=== PATIENT | female | born 1950 | race Caucasian/White ===

== ENCOUNTER 2025-11-21 23:35 | Inpatient (IN) | payer OTHER, SELFPAY ==
[2025-11-21 20:01] VITALS: BP 168/86
--- NOTE | 2025-11-21 21:13 | ED.GENMED ---
History of Present Illness
General
Chief Complaint: Breathing Problem
Time Seen by Provider: 11/21/25 20:50
History of Present Illness
History of Present Illness:
Patient is a 75-year-old woman history of hypertension, hyperlipidemia, diabetes presenting to the emergency department did not exertion. Patient states for the past few weeks has been having shortness of breath especially upon exertion, chest
pressure and a cough. Some mild leg swelling. Family visited her today who noticed significant decline and they convinced her to come to the emergency department for further evaluation. Patient has never seen cardiology before. No fevers chills.
No hemoptysis. No history of blood clots. She does state that she sleeps on 2 pillows.
Phy Exam
Physical Exam
Physical Exam:
GENERAL: in no acute distress
HEENT: normocephalic, extraocular movements intact, moist oral mucosa
NECK: normal inspection
RESPIRATORY: no respiratory distress, fine crackles at bases
CARDIOVASCULAR: regular rate and rhythm
ABDOMEN/: soft, non-distended, non-tender to palpation, no rebound or guarding
EXTREMITIES: non-tender, mild bilateral lower extremity edema
NEUROLOGIC: awake and alert, moves all extremities
SKIN: warm
Scores
Heart Failure Risk
Heart Failure Risk Score: Not Applicable
Course
Orders/Labs/Results
Orders:
Orders
11/21/25 20:00
EKG [Electrocardiogram (*1)] Urgent
Reason for Study: Shortness of Breath
EKG- Treatment ONCE
11/21/25 20:07
Electrocardiogram (*1) Urgent
Reason for Study: Shortness of Breath
EKG- Treatment ONCE
CR Chest - 2 Views Urgent
Comment:
Reason For Exam: sob/guzman x 3-4 weeks w/ dry cough
11/21/25 21:47
Complete Blood Count/With Diff Urgent
Comprehensive Metabolic Panel Urgent
NT-proBNP Urgent
Prothrombin Time Urgent
Troponin I Urgent
11/21/25 22:40
* Blood Bank Products Urgent
Blood Bank Products: *Packed RBC Leuko (PRBC's
Quantity: 1
Transfuse Today: Yes
Reason: Anemia
Abnormal Lab Results
11/21/25
21:47
RBC 2.98 L 10^6/uL
(4.20-5.40)
Hgb 7.4 L g/dL
(12.0-16.0)
Hct 23.9 L %
(37.0-47.0)
MCV 80.2 L fL
(81.0-99.0)
MCH 24.8 L pg
(27.0-31.0)
MCHC 31.0 L g/dL
(33.0-37.0)
RDW 18.1 H %
(11.5-14.5)
Absolute Lymphs (auto) 1.1 L 10^3/uL
(1.2-3.4)
Lymphocytes % 19.4 L %
(20.5-51.1)
Sodium 131 L mmol/L
(135-145)
Carbon Dioxide 21 L mmol/L
(22-30)
BUN 31 H mg/dl
(7-17)
Creatinine 1.6 H mg/dL
(0.6-1.0)
Glucose 160 H mg/dl
(70-99)
11/21/25 21:47
11/21/25 21:47
Vital Signs
Initial and Last Documented VS:
Initial Vital Signs
Temp Pulse Resp BP Pulse Ox
98.5 F 92 24 168/86 98
11/21/25 20:01 11/21/25 20:01 11/21/25 20:01 11/21/25 20:01 11/21/25 20:01
Last Documented Vital Signs
Temp Pulse Resp BP Pulse Ox
98.5 F 92 24 168/86 98
11/21/25 20:01 11/21/25 20:01 11/21/25 20:01 11/21/25 20:01 11/21/25 21:15
MDM/Problems Addressed
Differential Diagnosis Includes:
Patient is a 75-year-old woman with history of hypertension, hyperlipidemia, diabetes presenting to the emergency department with a few weeks of dyspnea on exertion as well as chest pressure. On arrival vitals unremarkable. Exam does show fine
crackles at the bases as well as bilateral lower extremity edema. She is mildly short of breath even with conversation. Concern for new onset heart failure versus atypical ACS versus viral illness though unlikely given duration of symptoms. Will
check blood work including troponin and BNP. Will obtain EKG and chest x-ray. Will get ambulatory pulse ox .
*Pulse Oximetry
SaO2: 98
Oxygen Mode of Delivery: Room air
Patient hypoxic: no
*Critical Care Note
Total Time (30-74mins, 75-104mins- exclusive of procedures): Not Applicable
Update Note
Update Note:
Blood work notable for hemoglobin of 7.4. Patient does state that she has had a low hemoglobin before but never this low. No history of melena. She also has elevated creatinine at 1.6. Unclear what baseline is. Troponin and BNP is normal.
Chest x-ray per my interpretation with no focal opacity. Upon minimal ambulation patient with significant shortness of breath with normal pulse ox. Could be symptomatic anemia. Will transfuse a unit of blood. Consent obtained.. Discussed with
hospitalist who accepted patient to their service.
ED Attending Note
-
Portions of this chart may have been created with voice recognition software.� Occasional wrong word or��sound alike� substitutions may have occurred due to the inherent limitations of voice recognition software.
Discharge Plan
Departure
Patient Disposition: Admit
Date of Disposition: 11/21/25
Time of Disposition: 22:41
Presentation/result/management discussed w/ accepting MD/DO: Hospitalist
Discharge Problem:
GUZMAN (dyspnea on exertion)
Referrals:
Adelso Jackson MD [Family Provider]
Interventions
Interventions:
*General Assessment Last Done: 11/21/25 20:01
*Neglect/Abuse Screening Last Done: 11/21/25 20:01
Discharge Date and Time
Print Language: TUNISIAN
[2025-11-21 21:58] LABS: Hematocrit 23.9 % (37.0-47.0); Hemoglobin 7.4 g/dL (12.0-16.0); Mean Corp Hgb Conc. 31.0 g/dL (33.0-37.0); Mean Corpuscular Volume 80.2 fL (81.0-99.0); Nucleated Red Blood Cells % 0 %; Platelet Count 363 10^3/uL (130-400); Red Cell Dist. Width 18.1 % (11.5-14.5)
[2025-11-21 22:00] VITALS: BP 157/79
[2025-11-21 22:11] LABS: INR 1.01; PT 13.1 Sec (11.4-14.6)
[2025-11-21 22:23] LABS: ALT (SGPT) 15 U/L (0-35); AST (SGOT) 27 U/L (14-36); Albumin 4.2 g/dl (3.5-5.0); Alkaline Phosphatase 69 U/L (38-126); Blood Urea Nitrogen 31 mg/dl (7-17); Calcium 9.6 mg/dl (8.4-10.2); Carbon Dioxide 21 mmol/L (22-30); Chloride 101 mmol/L (98-107); Glucose 160 mg/dl (70-99); Potassium 4.1 mmol/L (3.5-5.1); Sodium 131 mmol/L (135-145); Total Protein 6.7 g/dl (6.3-8.2); eGFR 33.01
[2025-11-21 22:24] LABS: Troponin I < 0.012 ng/ml
[2025-11-21 22:25] VITALS: BP 157/85
--- NOTE | 2025-11-21 22:47 | HPS.HSE ---
Addendum entered and electronically signed by Nathanael Cesar DO 11/21/25 23:57:
Patient seen and examined independently. Agree with findings and plan as set forth by BALBINA Irby.
Patient is a 75y F with PMH significant for hypertension, DM-II and CKD who presents to ED complaining of dyspnea on exertion. Patient states that she has become progressively more short of breath with activity since . She notes
some increase in her chronic LE swelling. She has chronic LE / calf cramping. No chest pain, fevers / chills, etc. She reports mild cough productive of clear sputum. No noted bleeding including bloody nose, coughing blood, bloody stools, black
stools, etc.
Ass:
GUZMAN
Suspected CHF
Anemia - Unknown Type / Acuity
CKD - Unknown Stage
Hyponatremia
Benign Hypertension
DM-II
GERD
Hypothyroidism
Gout
Plan:
Admit for further evaluation and treatment.
Gradually progressive dyspnea, lower extremity edema, hyponatremia and elevated BP seems most c/w volume overload / CHF.
IV Lasix BID and follow for improvement.
Check Echo. Cardiology evaluation if warranted.
Transfusion ordered in the ED for Hgb = 7.4. ? baseline.
Obtain prior labs from [facility] for comparative baseline(s) for Hgb, SCr, etc.
Check iron studies. Heme test stools.
Original Note:
Family Physician
-
Family Physician: Adelso Jackson
Chief Complaint
-
sob
History of Present Illness
75-year-old woman history of hypertension, hyperlipidemia, diabetes , lung nodules, CKD, anemia presented to us with progressively worsening sob since . patient stated sob worse with exertion, relieves with rest. denied chest pain. she
complained of cough with clear sputum. denied ZAMORA, dizzy or syncope. denied abdominal pain, rectal bleed, black stool, n,v. denied dysuria or hematuria.she also complained of worsening of her LE edema.
upon arrial noted hgb of 7.4, giving one unit of blood. admitting for further management.
Medical History
Past Medical History
Past Medical History: Reports Other
Additional Past Medical History:
Hypertension hyperlipidemia CKD type 2 diabetes, GERD, leg nodules, hypothyroidism
Past Surgical History: Reports Other
Additional Past Surgical History:
Cataract surgery
Social History
Tobacco: Former Smoker
Alcohol: Occasional
Drug: None
Personal: Single
Living: Alone
Family History
Family History: Not pertinent
Allergies / Home Medications
Allergies reflects when Allergies were last updated in [facility].
Home Medications with original date entered in [facility]
Allergy/Medication List:
Allergies
Allergy/AdvReac Type Severity Reaction Status Date / Time
No Known Allergies Allergy Unverified 11/21/25 20:00
Review of Systems
-
Constitutional: Reports No Symptoms
EENT: Reports No Symptoms
Respiratory: Reports Trouble Breathing
Cardiac: Reports No Symptoms
Abdomen/GI: Reports No Symptoms
: Reports No Symptoms
Musculoskeletal: Reports No Symptoms and Edema (b/l LE edema)
Skin: Reports No Symptoms
Neurological: Reports No Symptoms
Endocrine: Reports No Symptoms
Hematologic/Lymphatic: Reports No Symptoms
Psych: Reports No Symptoms
Physical Exam
Vital Signs
Vital Signs
Temp Pulse Resp BP Pulse Ox
98.5 F 92 24 168/86 98
11/21/25 20:01 11/21/25 20:01 11/21/25 20:01 11/21/25 20:01 11/21/25 21:15
Physical Exam
General: Well Developed, Well Nourished and No Apparent Distress
HEENT: NormoCephalic, Moist mucous membranes and Atraumatic
Respiratory: Decreased Breath Sounds
Cardiac: S1/S2 and Regular Rhythm; No Murmur or Rub
GI: Soft, Non Tender, Non Distended and Normal Bowel Sounds; No Organomegaly
Rectal: Deferred by Provider
Musculoskeletal: No Clubbing, No Cyanosis and Other (b/l Le edema)
Skin: No Rash
Neuro: AO x 3 and Nonfocal/grossly intact
Psych: Calm
Laboratory Results
-
11/21/25 21:47
11/21/25 21:47
Laboratory Results
PT 13.1 Sec (11.4-14.6) 11/21/25 21:47
INR 1.01 11/21/25 21:47
Total Bilirubin 0.4 mg/dl (0.2-1.3) 11/21/25 21:47
AST 27 U/L (14-36) 11/21/25 21:47
ALT 15 U/L (0-35) 11/21/25 21:47
Alkaline Phosphatase 69 U/L (38-126) 11/21/25 21:47
Troponin I < 0.012 ng/ml 11/21/25 21:47
Data Reviewed
-
Lab Data: Labs Reviewed by me
Impression/Plan
-
#sob concern for CHF
-BNP 505, chest x ray pending
-diuretics continued
-obtain ECHO
-strict I&O, daily weight
-fluid restriction
#hxt of anemia unclear of baseline
-obtain iron panel, ferritin, b12, folate, TIBC
-hgb 7.4, no active bleeding
-transfusing with one unit of blood
-hgb in am
#hyponatremia concern for fluid overload
#hxt of CKD unclear baseline
-na 131, cr 1.6
-ctm
-fluid restriction
#essential HTN
-hold lisinopril,chlorthalidone
-atenolol continued
#HLD
-statin continued
#GERd
-PPI continued
#hypothyroidism
-levothyroxine continued
#type 2 Dm
-sliding scale
-hold glipizide
-CHO diet
#GOUT
-allopurinol continued
#DVT Prophylaxis
-scd
#CODE status
-full code
[2025-11-21 23:00] VITALS: BP 150/91
[2025-11-21 23:50] LABS: Iron 34 ug/dl (37-170)
[2025-11-22] VITALS (9 sets, daily range): BP systolic 106–170; BP diastolic 61–89; BMI 27.0
[2025-11-22] LABS: Total Iron Binding Capacity 563 ug/dl (265-497)
--- NOTE | 2025-11-22 | PTCARENOTE ---
Pt is awake,alert, and oriented. no c/o pain. pt a little GUZMAN. spo2=98%. lugs diminished but CTA. pt denies any hx of chf. education provided and explained test to evaluate for chf. pt ordered 1 unit of blood. pt oriented to room w/ call patel in
reach.
[2025-11-22] MEDS: LASIX 40 MG IV ×2 (00:12→10:00)
[2025-11-22 00:26] LABS: Ferritin 7.7 ng/ml (11.1-264.0)
[2025-11-22 00:57] LABS: Folate 8.5 ng/ml (2.76-20); Vitamin B12 468 pg/ml (239-931)
[2025-11-22] MEDS: SYNTHROID 25 MCG PO (05:56)
--- NOTE | 2025-11-22 06:07 | PTCARENOTE ---
blood transfusion completed. vss. no reaction noted
[2025-11-22 07:48] LABS: Glucose - Point of Care 138 mg/dl (70-99)
[2025-11-22] MEDS: NOVOLOG FLEXPEN-LOW RESISTANCE SC (08:01)
[2025-11-22] MEDS: ZYLOPRIM 300 MG PO (08:17)
[2025-11-22] MEDS: PROTONIX 40 MG PO (08:18)
[2025-11-22] MEDS: TRICOR 145 MG PO (08:18)
[2025-11-22 09:33] LABS: Blood Urea Nitrogen 30 mg/dl (7-17); Calcium 10.2 mg/dl (8.4-10.2); Carbon Dioxide 25 mmol/L (22-30); Chloride 97 mmol/L (98-107); Estimated Creatinine Clearance 23 ml/min; Glucose 129 mg/dl (70-99); HDL Cholesterol 40 mg/dl; LDL Cholesterol, Calculated 57 mg/dl; Magnesium 1.9 mg/dl (1.6-2.3); Potassium 3.7 mmol/L (3.5-5.1); Sodium 134 mmol/L (135-145); Very Low Density Lipoprotein 37 mg/dl (0-30); eGFR 30.70
[2025-11-22 09:37] LABS: Glycohemoglobin (HgbA1c) 7.4 % (4.0-5.9)
[2025-11-22 09:43] LABS: Hematocrit 30.0 % (37.0-47.0); Hemoglobin 9.6 g/dL (12.0-16.0); Mean Corp Hgb Conc. 32.0 g/dL (33.0-37.0); Mean Corpuscular Volume 81.5 fL (81.0-99.0); Platelet Count 377 10^3/uL (130-400); Red Cell Dist. Width 16.8 % (11.5-14.5)
[2025-11-22] MEDS: TENORMIN 100 MG PO (09:59)
[2025-11-22 12:26] LABS: Glucose - Point of Care 243 mg/dl (70-99)
[2025-11-22] MEDS: NOVOLOG FLEXPEN-LOW RESISTANCE 2 UNITS SC (12:53)
--- NOTE | 2025-11-22 14:31 | W.PN.HOSP.TC ---
Today's Communication/Plan
-
Start on IV Venofer. Check heme to stools.
Follow echocardiogram report. Consult cardiology.
Assessment / Plan
Assessment / Plan
# Exertional shortness of breath with lower extremity edema
Initial concern was CHF with hypertension, diabetes mellitus and chronic kidney disease.
Clinically currently without JVD. Chest sounds clear. No lower extremity edema evident. BNP was within the normal limits. Chest x-ray without evidence of CHF or pulmonary edema.
Echo pending. I suspect this may be more anemia driven.
Continue with Lasix. Consult cardiology.
# Severe anemia with hemoglobin 7.4.
#Hx of anemia unclear of baseline
#Iron deficiency
-hgb 7.4, no active bleeding
- S/p transfusion of 1 unit of blood with improvement in hemoglobin.
- Start on IV iron.
- Check heme test stools.
If no active bleeding patient would be referred for colonoscopy as an outpatient in view of iron deficiency anemia.
#hyponatremia
? related to Chlorthalidone which is on hold
Improved .
Currently on lasix
#hx of CKD unclear baseline
- cr 1.6
-ctm
-fluid restriction
#essential HTN
-hold lisinopril,chlorthalidone
-atenolol continued
- BP undergoal
- Check UA
#HLD
-statin continued
#GERd
-PPI continued
#hypothyroidism
-levothyroxine continued
#type 2 Dm
-sliding scale
-hold glipizide
-CHO diet
#GOUT
-allopurinol continued
#DVT Prophylaxis
-scd
#CODE status
-full code
DW family at bedside
Total time spent on today's encounter was 52 minutes which included time spent in counseling the patient/family regarding diagnosis and treatment plan as listed above, goals of care, and symptom management. Case was discussed with nursing staff,
specialists, and care coordinators/case management. All labs and imaging personally reviewed by me. Remainder the time spent in detailed review of previous records, lab data, imaging, and other medical provider documentation.
Portions of this chart may have been created with voice recognition software. Occasional wrong word or 'sound alike' substitutions may have occurred due to the inherent limitations of voice recognition software.
Anticipated Discharge: 24 - 48 hours
Subjective/Interval History
-
Date of Service: November 22, 2025
Patient today without shortness of breath or chest pain at rest. Improved lower extremity edema after Lasix.
Known hypertension and diabetes mellitus type 2. She apparently was also told she has kidney injury and has seen senior human resources representative in the past but now currently follows just PCP.
Apparently had a history of anemia but never had bleeding in the stools or dark stools. She had some hemorrhoidal bleeding in the past. No peptic ulcer disease. Has some heartburn and takes medicines for that. Last colonoscopy was 17-18 years
ago. No weight changes. Denies change in the bowel habits.
No palpitations.
Objective Data
-
Labs:
Laboratory Results
11/22/25
08:28
WBC 5.1
Hgb 9.6 L D
Hct 30.0 L
Plt Count 377
Sodium 134 L
Potassium 3.7
Chloride 97 L
Carbon Dioxide 25
BUN 30 H
Creatinine 1.7 H
Glucose 129 H
Calcium 10.2
Vital Signs:
Vital Signs
Temp Pulse Resp BP Pulse Ox
97.8 F 72 18 139/73 98
11/22/25 11:45 11/22/25 11:45 11/22/25 11:45 11/22/25 11:45 11/22/25 11:45
I&O
11/21/25 11/22/25 11/23/25
06:59 06:59 06:59
Intake Total 490 / 490
Output Total 1100 / 1100
Balance -610 / -610
Physical Exam
-
General: Comfortable
Respiratory: Clear to Auscultation and Non Labored Respirations; Negative Accessory Resp Muscle Use
Cardiac: Regular Rhythm, S1/S2 and Murmur; Negative Tachycardic
GI: Soft, Nontender, Nondistended and Normal Bowel Sounds
Musculoskeletal: No Edema
Neuro: AO x 3
Psych: Calm
Data Reviewed
-
Labs: Labs Reviewed by me
--- NOTE | 2025-11-22 15:03 | CON.CAR ---
Addendum entered and electronically signed by Jordon Wing MD 11/22/25 16:39:
I reviewed and agree with the note by BALBINA Oconnor and it accurately reflects our care.
I saw and evaluated the patient, and I provided the substantive portion of the medical decision making. My assessment and plan is below:
75-year-old female with hypertension, hyperlipidemia, diabetes, CKD, and anemia who presents with shortness of breath since . She reports that her family saw her yesterday for the holiday and advised her to come to the hospital due to
her profound shortness of breath. It was happening both at rest and with exertion. She also had some mild lower extremity edema. No orthopnea, weight gain, or paroxysmal nocturnal dyspnea. On admission she was found to have hemoglobin 7.4 and
was transfused 1 unit PRBCs. She was also given 1 dose of IV Lasix. She feels improved compared to admission.
Physical exam: RRR, systolic murmur, clear lungs, no lower extremity edema
TTE 11/22/2025: LVEF 55-60%, normal diastolic function, moderate
CXR with no pulmonary edema. NT proBNP 503.
Shortness of breath: Suspect this was mostly due to her anemia. Cannot rule out a small component of CHF given her concomitant lower extremity edema but CXR, NT proBNP, and normal diastolic function would argue against this. I do not think she
needs any more IV diuresis. She is on chlorthalidone as an outpatient, so we can switch this to Lasix 40 mg daily. Would not start SGLT2 inhibitor or MRA given dubious heart failure diagnosis.
Moderate aortic stenosis: She will need outpatient follow-up and serial echocardiograms.
Cardiology will sign off at this time. Please call with any additional questions or concerns.
Original Note:
Consultation
Consultation Request
Date/Time Consultation Requested: 11/22/25 1437
Date/Time Consultation Performed: 11/22/25 1500
Requesting Provider: Dr. Farris
Performing Provider: Michelle MORTENSEN for Dr. Wing
Reason for Consultation: CHF
Medical History
-
Chief Complaint: SOB
History of Present Illness:
75 y/o female with HTN, DM, HLD, CKD, and anemia who is here for evaluation of progressive GUZMAN since . Her family saw her yesterday and told her she needs to come to ER- son at bedside. She has some chronic BLE edema, which she thinks
also worsened during that timeframe. No orthopnea. No significant change in weight. No blood in urine or stool. Denies chest pain. She is admitted for suspected CHF and anemia. She received PRBCs and lasix and is feeling improved. She is in no
distress at the time of my assessment.
Past Medical History
Past Medical History: HTN, Hypercholesterolemia, NIDDM and Other (as above)
Social History
Tobacco: Former Smoker
Family History
Family History: Reviewed & Not Pertinent
Allergies / Home Medications
Allergy/AdvReac Type Severity Reaction Status Date / Time
No Known Allergies Allergy Unverified 11/21/25 20:00
�Medication �Instructions �Recorded �Confirmed �Type
albuterol sulfate 90 mcg/actuation 1 puff inhalation Q4H PRN 11/21/25 11/21/25 History
aerosol inhaler sob/wheezing
allopurinol 300 mg tablet 300 mg PO DAILY 11/21/25 11/21/25 History
atenolol 100 mg-chlorthalidone 25 1 tab PO DAILY 11/21/25 11/21/25 History
mg tablet
fenofibrate 160 mg tablet 160 mg PO DAILY 11/21/25 11/21/25 History
fluticasone propionate 50 1 spray intranasal BID 11/21/25 11/21/25 History
mcg/actuation nasal
spray,suspension
glipizide 5 mg tablet, extended 5 mg PO TID 11/21/25 11/21/25 History
release 24 hr
levothyroxine 25 mcg tablet 25 mcg PO DAILY 11/21/25 11/21/25 History
lisinopril 20 mg tablet 20 mg PO DAILY 11/21/25 11/21/25 History
pantoprazole 40 mg tablet,delayed 40 mg PO DAILY 11/21/25 11/21/25 History
release
rosuvastatin 40 mg tablet 40 mg PO DAILY 11/21/25 11/21/25 History
aspirin 81 mg tablet 81 mg PO DAILY 11/22/25 11/22/25 History
Review of Systems
-
History Source: Patient
All other systems: Negative unless noted
Respiratory: Trouble Breathing
Musculoskeletal: Edema
Physical Exam
Vital Signs
Temp Pulse Resp BP Pulse Ox
97.8 F 72 18 139/73 98
11/22/25 11:45 11/22/25 11:45 11/22/25 11:45 11/22/25 11:45 11/22/25 11:45
Lab Results
11/22/25 08:28
11/22/25 08:28
Troponin I < 0.012 ng/ml 11/21/25 21:47
Chu-S-Mihkgnoqyhm Pept 503 pg/ml 11/21/25 21:47
Physical Exam
General: Well Developed, Well Nourished and No Apparent Distress
HEENT: Normocephalic and Anicteric
Respiratory: Clear and Non Labored Respirations
Cardiac: Regular Rhythm
Musculoskeletal: Edema (mild BLE edema)
Skin: Warm and Dry
Neuro: AO x 3
Psych: Calm
Impression / Plan
-
GUZMAN:
-improved with treatment of anemia and CHF
Acute HFpEF:
-had SOB and LE edema
-s/p IV diuresis (which requires intensive monitoring)- can likely transition to PO soon (replace chlorthalidone with Lasix 20 mg PO daily)- will need BMP about 1 week after d/c.
-Echo 11/22/25: Normal left ventricular systolic function. Estimated ejection fraction 55 to 60%. Moderate aortic stenosis with mean gradient 14 mmHg and dimensionless index 0.3. Trace aortic regurgitation.
Moderate :
-volume plan as above
-monitor as OP over time by echo
CKD:
-unknown baseline
-monitor with Lasix
Anemia, severe:
-improved s/p PRBC
-management per primary
HTN:
-monitor with medication adjustments
DM2:
-on oral medical therapy
Data Reviewed
-
EKG: Tracing Personally Visualized and interpreted (NSR)
Radiology: Report Reviewed by me (CXR: No acute cardiopulmonary process.)
Medical Tests (Nuc Med, Echo etc): Report Reviewed by me (echo as noted)
Labs: Labs Reviewed by me
[2025-11-22 16:37] LABS: Glucose - Point of Care 161 mg/dl (70-99)
[2025-11-22] MEDS: CRESTOR 40 MG PO (17:15)
[2025-11-22] MEDS: NOVOLOG FLEXPEN-LOW RESISTANCE 1 UNITS SC (17:16)
[2025-11-22 21:10] LABS: Glucose - Point of Care 164 mg/dl (70-99)
[2025-11-23 03:18] VITALS: BP 111/64
[2025-11-23] MEDS: SYNTHROID 25 MCG PO (05:47)
[2025-11-23 06:00] VITALS: BMI 25.9
[2025-11-23 07:43] VITALS: BP 127/74
[2025-11-23 08:06] LABS: Glucose - Point of Care 127 mg/dl (70-99)
[2025-11-23 08:32] LABS: Hematocrit 31.1 % (37.0-47.0); Hemoglobin 9.7 g/dL (12.0-16.0); Mean Corp Hgb Conc. 31.2 g/dL (33.0-37.0); Mean Corpuscular Volume 80.4 fL (81.0-99.0); Platelet Count 380 10^3/uL (130-400); Red Cell Dist. Width 17.3 % (11.5-14.5)
[2025-11-23 09:00] LABS: Blood Urea Nitrogen 50 mg/dl (7-17); Calcium 9.7 mg/dl (8.4-10.2); Carbon Dioxide 26 mmol/L (22-30); Chloride 94 mmol/L (98-107); Estimated Creatinine Clearance 15 ml/min; Glucose 131 mg/dl (70-99); Potassium 3.9 mmol/L (3.5-5.1); Sodium 133 mmol/L (135-145); eGFR 18.44
[2025-11-23] MEDS: TENORMIN 100 MG PO (10:00)
[2025-11-23] MEDS: NOVOLOG FLEXPEN-LOW RESISTANCE SC ×2 (10:00→12:35)
[2025-11-23] MEDS: TRICOR 145 MG PO (10:01)
[2025-11-23] MEDS: PROTONIX 40 MG PO (10:01)
[2025-11-23] MEDS: ZYLOPRIM 300 MG PO (10:01)
[2025-11-23] MEDS: LASIX 20 MG PO (10:01)
--- NOTE | 2025-11-23 10:05 | PTCARENOTE ---
pt aox3, states that she is feeling better. says she is less sob, denies n/v, had bm yesterday. ate breakfast, resting, call patel in reach
[2025-11-23 11:47] VITALS: BP 118/62
[2025-11-23 12:31] LABS: Glucose - Point of Care 144 mg/dl (70-99)
--- NOTE | 2025-11-23 14:49 | W.PN.HOSP.TC ---
Today's Communication/Plan
-
Hold Lasix
Check BMP in am
Assessment / Plan
Assessment / Plan
# Exertional shortness of breath with lower extremity edema
Initial concern was CHF with hypertension, diabetes mellitus and chronic kidney disease.
Clinically currently without JVD. Chest sounds clear. No lower extremity edema evident. BNP was within the normal limits. Chest x-ray without evidence of CHF or pulmonary edema.
Echo with normal EF and moderate aortic stenosis. I suspect this may be more anemia driven.
Patient is euvolemic clinically and with rising creatinine concerned about overdiuresis. Hold further Lasix.
Appreciate cardiology input.
# Severe anemia with hemoglobin 7.4.
#Hx of anemia unclear of baseline
#Iron deficiency
#Heme-negative
-hgb 7.4, no active bleeding
- S/p transfusion of 1 unit of blood with improvement in hemoglobin.
- Started on IV iron.
Patient recommended follow-up with GI for colonoscopy as an outpatient in view of iron deficiency anemia.
#hyponatremia
? related to Chlorthalidone which is on hold
Improved .
Currently on lasix
#hx of CKD unclear baseline
# DONNA on CKD suspect over diuresis with significant wt loss
- cr 1.6
-ctm
-fluid restriction
#essential HTN
-hold lisinopril,chlorthalidone
-atenolol continued
- BP undergoal
- Check UA
#HLD
-statin continued
#GERd
-PPI continued
#hypothyroidism
-levothyroxine continued
#type 2 Dm
-sliding scale
-hold glipizide
-CHO diet
#GOUT
-allopurinol continued
#DVT Prophylaxis
-scd
#CODE status
-full code
DW son at bedside
Portions of this chart may have been created with voice recognition software. Occasional wrong word or 'sound alike' substitutions may have occurred due to the inherent limitations of voice recognition software.
Anticipated Discharge: 24 - 48 hours
Subjective/Interval History
-
Date of Service: November 23, 2025
Feels much improved from swelling standpoint. She does not see any more lower extremity edema.
Denies any shortness of breath. No chest pain. No nausea vomiting.
Denies any lightheadedness.
Baseline weight usually is around 136-138lbs
Objective Data
-
Labs:
Laboratory Results
11/23/25
07:44
WBC 5.3
Hgb 9.7 L
Hct 31.1 L
Plt Count 380
Sodium 133 L
Potassium 3.9
Chloride 94 L
Carbon Dioxide 26
BUN 50 H
Creatinine 2.6 H
Glucose 131 H
Calcium 9.7
Vital Signs:
Vital Signs
Temp Pulse Resp BP Pulse Ox
98 F 72 16 118/62 97
11/23/25 11:47 11/23/25 11:47 11/23/25 11:47 11/23/25 11:47 11/23/25 11:47
I&O
11/22/25 11/23/25 11/24/25
06:59 06:59 06:59
Intake Total 490 / 490
Output Total 1100 / 1100 1650 / 1650
Balance -610 / -610 -1650 / -1650
Physical Exam
-
General: No Apparent Distress
HEENT: Moist Mucous Membranes
Respiratory: Non Labored Respirations; Negative Accessory Resp Muscle Use
Cardiac: Regular Rhythm and S1/S2; Negative Tachycardic
GI: Soft and Nontender
Musculoskeletal: No Edema
Neuro: AO x 3
Psych: Calm; Negative Confused
Data Reviewed
-
Labs: Labs Reviewed by me
[2025-11-23 15:02] VITALS: BP 125/70
[2025-11-23] MEDS: FERRLECIT 110 MG IV (15:26)
[2025-11-23 17:07] LABS: Glucose - Point of Care 274 mg/dl (70-99)
[2025-11-23] MEDS: NOVOLOG FLEXPEN-LOW RESISTANCE 3 UNITS SC (17:16)
[2025-11-23] MEDS: CRESTOR 40 MG PO (17:16)
[2025-11-23 19:22] VITALS: BP 114/56
[2025-11-23 20:55] LABS: Urine Character Clear (Clear)
[2025-11-23 21:11] LABS: Urine Red Blood Cell 0-2 /HPF (0-2)
[2025-11-23 21:19] LABS: Glucose - Point of Care 135 mg/dl (70-99)
[2025-11-23 23:34] VITALS: BP 119/62
[2025-11-24 03:25] VITALS: BP 112/62
[2025-11-24] MEDS: SYNTHROID 25 MCG PO (05:49)
[2025-11-24 06:00] VITALS: BMI 25.8
[2025-11-24 07:27] VITALS: BP 113/67
[2025-11-24 07:35] LABS: Glucose - Point of Care 155 mg/dl (70-99)
[2025-11-24 07:50] LABS: Hematocrit 32.3 % (37.0-47.0); Hemoglobin 10.0 g/dL (12.0-16.0); Mean Corp Hgb Conc. 31.0 g/dL (33.0-37.0); Mean Corpuscular Volume 81.8 fL (81.0-99.0); Platelet Count 351 10^3/uL (130-400); Red Cell Dist. Width 17.5 % (11.5-14.5)
[2025-11-24 08:17] LABS: Blood Urea Nitrogen 66 mg/dl (7-17); Calcium 9.9 mg/dl (8.4-10.2); Carbon Dioxide 27 mmol/L (22-30); Chloride 98 mmol/L (98-107); Estimated Creatinine Clearance 14 ml/min; Glucose 165 mg/dl (70-99); Potassium 4.3 mmol/L (3.5-5.1); Sodium 137 mmol/L (135-145); eGFR 16.87
[2025-11-24 08:45] VITALS: BP 132/64; PULSE 77; O2SAT 97
[2025-11-24] MEDS: PROTONIX 40 MG PO (09:28)
[2025-11-24] MEDS: TRICOR 145 MG PO (09:28)
[2025-11-24] MEDS: ZYLOPRIM 300 MG PO (09:28)
[2025-11-24] MEDS: TENORMIN 100 MG PO (09:28)
[2025-11-24] MEDS: NOVOLOG FLEXPEN-LOW RESISTANCE 1 UNITS SC ×2 (09:29→13:59)
--- NOTE | 2025-11-24 10:24 | W.PN.HOSP.TC ---
Today's Communication/Plan
-
Ultrasound of kidneys and bladder.
Continue to hold Lasix
Check BMP tomorrow
Assessment / Plan
Assessment / Plan
# Exertional shortness of breath with lower extremity edema
Initial concern was CHF with hypertension, diabetes mellitus and chronic kidney disease.
Clinically currently without JVD. Chest sounds clear. No lower extremity edema evident. BNP was within the normal limits. Chest x-ray without evidence of CHF or pulmonary edema.
Echo with normal EF and moderate aortic stenosis. I suspect this may be more anemia driven.
Patient is euvolemic clinically and with rising creatinine concerned about overdiuresis. Hold further Lasix.
Appreciate cardiology input.
# Severe anemia with hemoglobin 7.4.
#Hx of anemia unclear of baseline
#Iron deficiency
#Heme-negative
-hgb 7.4, no active bleeding
- S/p transfusion of 1 unit of blood with improvement in hemoglobin.
- Started on IV iron.
Patient recommended follow-up with GI for colonoscopy as an outpatient in view of iron deficiency anemia.
# Leg cramps -chronic
Resolved now -suspect iron def related
#hyponatremia
? related to Chlorthalidone which is on hold
Improved .
Currently on lasix
#hx of CKD unclear baseline
# DONNA on CKD suspect over diuresis with significant wt loss
- cr 1.6; today 2.8
- No urinary obstructive symptoms. No acidosis or electrolyte disturbances.
-I still suspect secondary to overdiuresis. Check an ultrasound of the kidneys. Repeat BMP tomorrow
#essential HTN
-hold lisinopril,chlorthalidone
-atenolol continued
- BP undergoal
- Albuminuria noted
- Need to follow with Nephro as OP
- Continue to optimize blood pressure and diabetes
#HLD
-statin continued
#GERd
-PPI continued
#hypothyroidism
-levothyroxine continued
#type 2 Dm
-sliding scale
-hold glipizide until renal function improves.
Hemoglobin A1c 7.4.
-CHO diet
#GOUT
-allopurinol continued
#DVT Prophylaxis
-scd
#CODE status
-full code
DW son at bedside
Portions of this chart may have been created with voice recognition software. Occasional wrong word or 'sound alike' substitutions may have occurred due to the inherent limitations of voice recognition software.
Anticipated Discharge: Within 24 hours
Subjective/Interval History
-
Date of Service: November 24, 2025
She notices no more leg cramps since hospitalization.
She was having them on a daily basis.
Denies any shortness of breath and no dizziness. Denies any nausea vomiting. Tolerating diet. No chest pain.
Denies any dysuria or frequency of urine.
Objective Data
-
Labs:
Laboratory Results
11/24/25
07:03
WBC 5.8
Hgb 10.0 L
Hct 32.3 L
Plt Count 351
Sodium 137
Potassium 4.3
Chloride 98
Carbon Dioxide 27
BUN 66 H
Creatinine 2.8 H
Glucose 165 H
Calcium 9.9
Vital Signs:
Vital Signs
Temp Pulse Resp BP Pulse Ox
98.7 F 68 16 113/67 96
11/24/25 07:27 11/24/25 09:28 11/24/25 07:27 11/24/25 09:28 11/24/25 07:27
I&O
11/23/25 11/24/25 11/25/25
06:59 06:59 06:59
Intake Total 890 / 890
Output Total 1650 / 1650 275 / 275
Balance -1650 / -1650 615 / 615
Physical Exam
-
General: Comfortable
Respiratory: Clear to Auscultation and Non Labored Respirations; Negative Accessory Resp Muscle Use
Cardiac: Regular Rhythm and S1/S2; Negative Tachycardic
GI: Soft
Musculoskeletal: No Edema
Neuro: AO x 3
Psych: Negative Confused
Data Reviewed
-
Labs: Labs Reviewed by me
--- NOTE | 2025-11-24 11:15 | CM ---
IA completed. Pt is independent in ADls and IADLS. IMM given and placed on chart.Lives alone in a ranch home with 1 step at the entrance. No hx of HH, SNF, Home O2 or insecurities. DME: Grab bars and shower chair. Confirmed PCP, Rx insurance and
drug coverage
PCP: Also Manuel
Rx: [facility]
Plan: DC to home no needs
[2025-11-24 11:38] VITALS: BP 124/68
[2025-11-24 11:55] LABS: Glucose - Point of Care 196 mg/dl (70-99)
[2025-11-24] MEDS: FERRLECIT 110 MG IV (14:19)
[2025-11-24 15:59] VITALS: BP 121/62
[2025-11-24 16:45] LABS: Glucose - Point of Care 235 mg/dl (70-99)
[2025-11-24] MEDS: NOVOLOG FLEXPEN-LOW RESISTANCE 2 UNITS SC (17:00)
[2025-11-24] MEDS: CRESTOR 40 MG PO (17:01)
[2025-11-24 21:11] LABS: Glucose - Point of Care 172 mg/dl (70-99)
[2025-11-24 23:02] VITALS: BP 120/57
[2025-11-25] MEDS: SYNTHROID 25 MCG PO (05:10)
[2025-11-25 06:00] VITALS: BMI 26.0
[2025-11-25 07:25] LABS: Hematocrit 31.7 % (37.0-47.0); Hemoglobin 9.7 g/dL (12.0-16.0); Mean Corp Hgb Conc. 30.6 g/dL (33.0-37.0); Mean Corpuscular Volume 83.0 fL (81.0-99.0); Platelet Count 339 10^3/uL (130-400); Red Cell Dist. Width 17.6 % (11.5-14.5)
[2025-11-25 07:57] LABS: Blood Urea Nitrogen 68 mg/dl (7-17); Calcium 9.9 mg/dl (8.4-10.2); Carbon Dioxide 27 mmol/L (22-30); Chloride 101 mmol/L (98-107); Estimated Creatinine Clearance 16 ml/min; Glucose 161 mg/dl (70-99); Potassium 4.5 mmol/L (3.5-5.1); Sodium 137 mmol/L (135-145); eGFR 20.29
[2025-11-25 07:59] VITALS: BP 122/70
[2025-11-25 08:12] LABS: Glucose - Point of Care 174 mg/dl (70-99)
[2025-11-25 08:33] VITALS: BP 116/65; PULSE 75; O2SAT 99
[2025-11-25] MEDS: NOVOLOG FLEXPEN-LOW RESISTANCE 1 UNITS SC (08:50)
[2025-11-25] MEDS: TRICOR 145 MG PO (08:58)
[2025-11-25] MEDS: TENORMIN 100 MG PO (08:58)
[2025-11-25] MEDS: ZYLOPRIM 300 MG PO (08:59)
[2025-11-25] MEDS: PROTONIX 40 MG PO (08:59)
[2025-11-25 11:52] LABS: Glucose - Point of Care 250 mg/dl (70-99)
[2025-11-25] MEDS: NOVOLOG FLEXPEN-LOW RESISTANCE SC ×2 (12:09→16:58)
[2025-11-25] MEDS: GLUCOTROL XL (EXTENDED RELEASE) 5 MG PO ×2 (12:26→16:58)
--- NOTE | 2025-11-25 12:27 | CM ---
Pt scheduled for US of kidneys and bladder
Plan: pending outcome of USs
--- NOTE | 2025-11-25 12:52 | W.PN.HOSP.TC ---
Today's Communication/Plan
-
Monitor vital signs see plan
Monitor renal function
Check renal ultrasound
Assessment / Plan
Assessment / Plan
General: Comfortable
Respiratory: Clear to Auscultation and Non Labored Respirations; Negative Accessory Resp Muscle Use
Cardiac: Regular Rhythm and S1/S2; Negative Tachycardic
GI: Soft
Musculoskeletal: No Edema
Neuro: AO x 3
Psych: Negative Confused
# Exertional shortness of breath with lower extremity edema
Initial concern was CHF with hypertension, diabetes mellitus and chronic kidney disease.
Clinically currently without JVD. Chest sounds clear. No lower extremity edema evident. BNP was within the normal limits. Chest x-ray without evidence of CHF or pulmonary edema.
Echo with normal EF and moderate aortic stenosis. I suspect this may be more anemia driven.
Patient is euvolemic clinically and with rising creatinine concerned about overdiuresis. Hold further Lasix.
Appreciate cardiology input.
# Severe anemia with hemoglobin 7.4.
#Hx of anemia unclear of baseline
#Iron deficiency
#Heme-negative
-hgb 7.4, no active bleeding
- S/p transfusion of 1 unit of blood with improvement in hemoglobin.
- Started on IV iron. Now hemoglobin 9.7. Monitor
Patient recommended follow-up with GI for colonoscopy as an outpatient in view of iron deficiency anemia.
She should also follow-up with hematology outpatient
# Leg cramps -chronic
Resolved now -suspect iron def related
#hyponatremia
? related to Chlorthalidone which is on hold
Improved .
#hx of CKD unclear baseline
# DONNA on CKD suspect over diuresis with significant wt loss
- cr 1.6 on admission, per patient she does have a history of CKD and used to see sword sw[employer]ower; today 2.4 today
- No urinary obstructive symptoms. No acidosis or electrolyte disturbances.
-I still suspect secondary to overdiuresis. Check an ultrasound of the kidneys
#essential HTN
-hold lisinopril,chlorthalidone
-atenolol continued
- Albuminuria noted
- Need to follow with Nephro as OP
- Continue to optimize blood pressure and diabetes
#HLD
-statin continued
#GERd
-PPI continued
#hypothyroidism
-levothyroxine continued
#type 2 Dm
-sliding scale
Restart glipizide
Hemoglobin A1c 7.4.
#GOUT
-allopurinol continued
#DVT Prophylaxis
-scd
#CODE status
-full code
Anticipated Discharge: Within 24 hours
Subjective/Interval History
-
Date of Service: November 25, 2025
denies pain
Objective Data
-
Labs:
Laboratory Results
11/25/25
06:44
WBC 4.7 L
Hgb 9.7 L
Hct 31.7 L
Plt Count 339
Sodium 137
Potassium 4.5
Chloride 101
Carbon Dioxide 27
BUN 68 H
Creatinine 2.4 H
Glucose 161 H
Calcium 9.9
Vital Signs:
Vital Signs
Temp Pulse Resp BP Pulse Ox
98.4 F 70 16 122/70 98
11/25/25 07:59 11/25/25 08:58 11/25/25 07:59 11/25/25 08:58 11/25/25 07:59
I&O
11/24/25 11/25/25 11/26/25
06:59 06:59 06:59
Intake Total 890 / 890 1080 / 1080
Output Total 275 / 275 700 / 700
Balance 615 / 615 380 / 380
[2025-11-25] MEDS: FERRLECIT 110 MG IV (14:16)
[2025-11-25 15:04] VITALS: BP 125/75
[2025-11-25 16:53] LABS: Glucose - Point of Care 152 mg/dl (70-99)
[2025-11-25] MEDS: CRESTOR 40 MG PO (17:00)
[2025-11-25 21:16] LABS: Glucose - Point of Care 134 mg/dl (70-99)
[2025-11-25 23:37] VITALS: BP 125/75
[2025-11-26 06:00] VITALS: BMI 26.2
[2025-11-26] MEDS: SYNTHROID 25 MCG PO (06:18)
[2025-11-26 08:01] VITALS: BP 125/70
[2025-11-26 08:06] LABS: Hematocrit 30.6 % (37.0-47.0); Hemoglobin 9.5 g/dL (12.0-16.0); Mean Corp Hgb Conc. 31.0 g/dL (33.0-37.0); Mean Corpuscular Volume 82.7 fL (81.0-99.0); Nucleated Red Blood Cells % 0 %; Platelet Count 341 10^3/uL (130-400); Red Cell Dist. Width 17.5 % (11.5-14.5)
[2025-11-26 08:32] LABS: Blood Urea Nitrogen 59 mg/dl (7-17); Calcium 9.8 mg/dl (8.4-10.2); Carbon Dioxide 26 mmol/L (22-30); Chloride 98 mmol/L (98-107); Estimated Creatinine Clearance 18 ml/min; Glucose 164 mg/dl (70-99); Potassium 4.2 mmol/L (3.5-5.1); Sodium 133 mmol/L (135-145); eGFR 23.82
[2025-11-26 08:34] LABS: Glucose - Point of Care 147 mg/dl (70-99)
[2025-11-26] MEDS: NOVOLOG FLEXPEN-LOW RESISTANCE SC (09:16)
[2025-11-26] MEDS: PROTONIX 40 MG PO (09:19)
[2025-11-26] MEDS: ZYLOPRIM 300 MG PO (09:19)
[2025-11-26] MEDS: TENORMIN 100 MG PO (09:19)
[2025-11-26] MEDS: TRICOR 145 MG PO (09:19)
[2025-11-26] MEDS: GLUCOTROL XL (EXTENDED RELEASE) PO (11:09)
[2025-11-26] MEDS: GLUCOTROL XL (EXTENDED RELEASE) 5 MG PO (11:10)
--- NOTE | 2025-11-26 11:40 | W.PN.HOSP.TC ---
Today's Communication/Plan
-
Monitor vital signs see plan
Patient is now feeling better, discharge after IV iron
Patient should follow-up outpatient with pulmonary for official PFTs
Currently stable on room air
Discussed with sister over the phone
Discharge today
Time of discharge 38 minutes
Assessment / Plan
Assessment / Plan
General: Comfortable
Respiratory: Clear to Auscultation and Non Labored Respirations; Negative Accessory Resp Muscle Use
Cardiac: Regular Rhythm and S1/S2; Negative Tachycardic
GI: Soft
Musculoskeletal: No Edema
Neuro: AO x 3
Psych: Negative Confused
# Exertional shortness of breath with lower extremity edema
Initial concern was CHF with hypertension, diabetes mellitus and chronic kidney disease.
Clinically currently without JVD. Chest sounds clear. No lower extremity edema evident. BNP was within the normal limits. Chest x-ray without evidence of CHF or pulmonary edema.
Echo with normal EF and moderate aortic stenosis. I suspect this may be more anemia driven.
Patient is euvolemic clinically and with rising creatinine concerned about overdiuresis. Hold further Lasix.
Appreciate cardiology input. Do not think this is heart failure.
Patient does have significant history of smoking, advised patient to follow-up with pulmonary outpatient and get official PFTs. She does have rescue inhaler that was prescribed by her PCP which she uses as needed. Currently she is able to ambulate
without any significant shortness of breath.
# Severe anemia with hemoglobin 7.4.
#Hx of anemia unclear of baseline
#Iron deficiency
#Heme-negative
-hgb 7.4, no active bleeding
- S/p transfusion of 1 unit of blood with improvement in hemoglobin.
- Started on IV iron. Now hemoglobin 9.5. Monitor
Patient recommended follow-up with GI for colonoscopy as an outpatient in view of iron deficiency anemia.
She should also follow-up with hematology outpatient
# Leg cramps -chronic
Resolved now -suspect iron def related
#hyponatremia
? related to Chlorthalidone which is on hold
Improved .
#hx of CKD unclear baseline
# DONNA on CKD suspect over diuresis with significant wt loss
- cr 1.6 on admission, per patient she does have a history of CKD and used to see study lead; today 2.1 today
- No urinary obstructive symptoms. No acidosis or electrolyte disturbances.
-I still suspect secondary to overdiuresis. Check an ultrasound of the kidneys
#essential HTN
-hold lisinopril,chlorthalidone
-atenolol continued
- Albuminuria noted
- Need to follow with Nephro as OP
- Continue to optimize blood pressure and diabetes
#HLD
-statin continued
#GERd
-PPI continued
#hypothyroidism
-levothyroxine continued
#type 2 Dm
-sliding scale
Restart glipizide
Hemoglobin A1c 7.4.
#GOUT
-allopurinol continued
#DVT Prophylaxis
-scd
#CODE status
-full code
Anticipated Discharge: Today
Subjective/Interval History
-
Date of Service: November 26, 2025
Feeling better
Objective Data
-
Labs:
Laboratory Results
11/26/25
07:14
WBC 5.6
Hgb 9.5 L
Hct 30.6 L
Plt Count 341
Sodium 133 L
Potassium 4.2
Chloride 98
Carbon Dioxide 26
BUN 59 H
Creatinine 2.1 H
Glucose 164 H
Calcium 9.8
Vital Signs:
Vital Signs
Temp Pulse Resp BP Pulse Ox
97.6 F 69 18 125/70 97
11/26/25 08:01 11/26/25 09:19 11/26/25 08:01 11/26/25 09:19 11/26/25 08:01
I&O
11/25/25 11/26/25 11/27/25
06:59 06:59 06:59
Intake Total 1080 / 1080 600 / 600
Output Total 700 / 700 400 / 400
Balance 380 / 380 200 / 200
--- NOTE | 2025-11-26 11:50 | W.DCSUMMARY ---
Discharge Summary
Discharge Data
Date of Admission: 11/21/25
Date of Discharge: 11/26/25
-
Pending Results: No
Hospital Course
75-year-old female with past medical history of suspected CKD, essential hypertension, hyperlipidemia, GERD, hypothyroidism, type 2 diabetes mellitus, gout came to the hospital with exertional shortness of breath with mild lower extremity edema.
Initially CHF was suspected and patient was started on IV Lasix however her renal function continue to get worse on IV Lasix. Cardiology was also consulted. Patient's symptoms could likely be secondary to anemia rather than heart failure.
Echocardiogram was done which showed normal EF with moderate aortic stenosis. Patient hemoglobin was 7.4 and was given 1 unit of blood transfusion with improvement in her symptoms. She was also started on IV iron. Her discharge hemoglobin was
improved from 9.5. She was instructed to follow-up with hematology closely outpatient. For her exertional shortness of breath it continue to improve over time. Given her history of smoking she was advised to follow-up with pulmonary outpatient.
Her renal function also continued to improve over time and her discharge creatinine was 2.1. She was instructed to get repeat BMP done with her primary care provider soon outpatient. Since her symptoms continue to improve, she was then discharged
home with instructions to follow-up with all her physicians outpatient.
Discharge Plan
-
Patient Disposition: Home (Routine Discharge)
Discharge Diagnosis/Procedures: Dyspnea on exertion
Severe iron deficiency anemia
Hyponatremia
DONNA on suspected CKD
Condition: Fair
Diet: As tolerated
Activity: As tolerated
Driving Restrictions: As prior to admission
Bathing Restrictions: None
Blood Work: CBC and BMP next week with primary care provider
Activity Restrictions/Additional Instructions:
Follow-up with your primary care doctor with repeat BMP and if that is improving then consider Lasix as needed
Referrals:
Adelso Jackson MD [Family Provider, Family Practice] - in less than 1 week
Sonu Matos DO [Active, Nephrology]
Jordon Wing MD [Active, Cardiology] - 12/06/25 9:40 am
Lilliana Kim MD [Active, Oncology]
Tello Tam MD [Active, Pulmonary Medicine]
Prescriptions:
New
ferrous sulfate 324 mg (65 mg iron) tablet,delayed release (DR/EC)
324 mg PO DAILY Qty: 30 0RF
atenolol 50 mg Tablet
100 mg PO DAILY Qty: 60 0RF
Continued
glipizide 5 mg tablet extended release 24hr
5 mg PO TID
levothyroxine 25 mcg tablet
25 mcg PO DAILY
pantoprazole 40 mg tablet,delayed release (DR/EC)
40 mg PO DAILY
allopurinol 300 mg tablet
300 mg PO DAILY
albuterol sulfate 90 mcg/actuation HFA aerosol inhaler
1 puff INHALATION Q4H PRN (Reason: sob/wheezing)
fluticasone propionate 50 mcg/actuation spray,suspension
1 spray INTRANASAL BID
rosuvastatin 40 mg tablet
40 mg PO DAILY
fenofibrate 160 mg tablet
160 mg PO DAILY
aspirin 81 mg Tablet
81 mg PO DAILY
Held
lisinopril 20 mg tablet
20 mg PO DAILY
Hold Instructions: Restart when blood pressure is greater than 140/90 and renal function improve
Discontinued
atenolol-chlorthalidone 100-25 mg tablet
1 tab PO DAILY
Discharge Orders:
Discharge Patient (As Directed); Ordered 11/26/25
Ordered By: Adrian Szymanski
Discharge Date and Time
Discharge Date/Time: 11/26/25 15:44
Print Language: TURKISH
[2025-11-26 12:03] LABS: Glucose - Point of Care 247 mg/dl (70-99)
[2025-11-26] MEDS: NOVOLOG FLEXPEN-LOW RESISTANCE 2 UNITS SC (12:30)
--- NOTE | 2025-11-26 13:13 | CM ---
Md entered order from discharge.
Spoke with patient she was ready for discharge.
She said son Abdi will drive her home.
Offered VN she declined.
IMM reviewed agreed with dc.
PLAN Home with no needs
[2025-11-26] MEDS: FERRLECIT 110 MG IV (13:42)
[2025-11-26 15:14] VITALS: BP 136/77
== END 2025-11-26 15:44 | disposition home or self-care (01) | DRG 812 ==
LOC: 4 EAST ACU 23:35
PROVIDERS: Emergency Medicine; Internal Medicine; Registered Nurse; ADMITTING PHYSICIAN Hospitalist; ATTENDING PHYSICIAN Internal Medicine; CONSULT PHYSICIAN Student in an Organized Health Care Education/Training Program; EMERGENCY PHYSICIAN Student in an Organized Health Care Education/Training Program; FAMILY PHYSICIAN Family Medicine
PROC: 30233N1 Transfusion of Nonautologous Red Blood Cells into Peripheral Vein, Percutaneous Approach (ICD-10-PCS; 2025-11-22)
DX: D50.9 Iron deficiency anemia, unspecified (principal); E87.1 Hypo-osmolality and hyponatremia; N17.9 Acute kidney failure, unspecified; R06.09 Other forms of dyspnea; N18.9 Chronic kidney disease, unspecified; E11.22 Type 2 diabetes mellitus with diabetic chronic kidney disease; E03.9 Hypothyroidism, unspecified; K21.9 Gastro-esophageal reflux disease without esophagitis; E78.00 Pure hypercholesterolemia, unspecified; I35.0 Nonrheumatic aortic (valve) stenosis; I12.9 Hypertensive chronic kidney disease with stage 1 through stage 4 chronic kidney disease, or unspecified chronic kidney disease; Z87.891 Personal history of nicotine dependence; Z79.82 Long term (current) use of aspirin; Z79.84 Long term (current) use of oral hypoglycemic drugs; Z79.890 Hormone replacement therapy; Z79.899 Other long term (current) drug therapy
CPT/HCPCS: 71046; 76770; 80048; 80053; 80061; 81003; 81015; 82607; 82728; 82746; 82962; 83036; 83540; 83550; 83735; 83880; 84443; 84484; 85025; 85027; 85610; 86850; 86900; 86901; 86920; 93005; 93306; 97116; 97162; 97165; 99285; J2916; P9016